=== PATIENT | female | born 1995 | race Caucasian/White ===

== ENCOUNTER 2017-05-29 13:12 | Emergency (ER) | payer OTHER ==
[2017-05-29 13:18] VITALS: TEMP 98.4
--- NOTE | 2017-05-29 13:25 | EDPHY ---
H & P Stated Complaint: N/V/D HPI/ROS: HPI CHIEF COMPLAINT: Nausea, vomiting, diarrhea HISTORY OF PRESENT ILLNESS: This patient very pleasant 21-year-old female she is otherwise healthy significant past medical history for depression and ADHD, presents emergency room with nausea vomiting diarrhea. Patient states she has been sick with diarrhea watery nonbloody for the past week. She has had some intermittent nausea no fever. She states she ate a burrito this morning and then medially started having vomiting. She thinks she may have food poisoning from the burrito. She denies any chest pain or shortness of breath. Patient denies fever. Does complain of generalized weakness plan denies urinary symptoms. Denies back pain. Denies significant abdominal pain. Past Medical History: Attention deficit hyperactivity disorder and depression Past Surgical History: No significant surgical history except septoplasty Social History: Denies drugs alcohol tobacco. Family History: Noncontributory ROS REVIEW OF SYSTEMS: A comprehensive 10 point review of systems is otherwise negative aside from elements mentioned in the history of present illness. Exam Constitutional appears well nontoxic triage nursing summary reviewed, vital signs reviewed, awake/alert. Eyes normal conjunctivae and sclera, EOMI, PERRLA. HENT normal inspection, atraumatic, moist mucus membranes, no epistaxis, neck supple/ no meningismus, no raccoon eyes. Respiratory clear to auscultation bilaterally, normal breath sounds, no respiratory distress, no wheezing. Cardiovascular rate normal, regular rhythm, no murmur, no edema, distal pulses normal. Gastrointestinal soft, non-tender, no rebound, no guarding, normal bowel sounds, no distension, no pulsatile mass. Genitourinary no CVA tenderness. Musculoskeletal no midline vertebral tenderness, full range of motion, no calf swelling, no tenderness of extremities, no meningismus, good pulses, neurovascularly intact. Skin pink, warm, & dry, no rash, skin atraumatic. Neurologic awake, alert and oriented x 3, AAOx3, moves all 4 extremities equally, motor intact, sensory intact, CN II-XII intact, normal cerebellar, normal vision, normal speech. Psychiatric normal mood/affect. Heme/Lymph/Immune no lymphadenopathy. Differential Diagnosis: Includes but is not limited to in a particular order dehydration, electrolyte disturbance, food-borne illness, flu, enteritis, appendicitis Medical Decision Making: Plan for this patient IV establishment IV fluid bolus 2 L normal saline, IV Zofran for nausea, check basic blood work, urinalysis, fluid mono. Re-evaluation: 1648: Re-evaluation at this time patient resting comfortably no acute distress feels much better after IV fluids. Her abdomen is soft nontender. She is not vomiting she would like to go home. Her blood work is unremarkable. Electrolytes are appropriate. No high white count fluids negative. Will allow go home prescription as Zofran. She understands return precautions , she understands return emergency room she develops worsening nausea vomiting abdominal pain fever questions or concerns. Source: Patient - Personal History LMP (Females 10-55): IUD In Place Current Tetanus Diphtheria and Acellular Pertussis (TDAP): Yes - Medical/Surgical History Other PMH: ADHD. depression - Social History Smoking Status: Never smoked Constitutional: Initial Vital Signs Temperature (C) 36.9 C 05/29/17 13:16 Heart Rate 88 05/29/17 13:16 Respiratory Rate 18 05/29/17 13:16 Blood Pressure 117/66 05/29/17 13:16 O2 Sat (%) 99 05/29/17 13:16 O2 Delivery Mode Room Air Allergies/Adverse Reactions: No Known Allergies Allergy (Unverified 05/29/17 15:23) Home Medications: Medication Instructions Recorded FLUoxetine [PROzac] 20 mg PO 05/29/17 Lisdexamfetamine Dimesylate 30 mg PO 05/29/17 [Vyvanse] Ondansetron HCl [Zofran] 4 mg PO Q4-6PRN PRN #10 tablet 05/29/17 Medical Decision Making - Data Points Laboratory Results: Laboratory Results 05/29/17 13:37 05/29/17 13:37 05/29/17 05/29/17 05/29/17 15:15 15:15 13:37 WBC RBC Hgb Hct MCV MCH MCHC RDW Plt Count MPV Neut % (Auto) Lymph % (Auto) [place] % (Auto) Eos % (Auto) Baso % (Auto) Nucleat RBC Rel Count Absolute Neuts (auto) Absolute Lymphs (auto) Absolute Monos (auto) Absolute Eos (auto) Absolute Basos (auto) Absolute Nucleated RBC Immature Gran % Immature Gran # Sodium Potassium Chloride Carbon Dioxide Anion Gap BUN Creatinine Estimated GFR Glucose Calcium Total Bilirubin Conjugated Bilirubin Unconjugated Bilirubin AST ALT Alkaline Phosphatase Total Protein Albumin Lipase Beta HCG, Qual NEGATIVE Urine Color COLORLESS Urine Appearance CLEAR Urine pH 7.0 (5.0-7.5) Ur Specific [place] 1.008 (1.002-1.030) Urine Protein NEGATIVE (NEGATIVE) Urine Ketones NEGATIVE (NEGATIVE) Urine Blood NEGATIVE (NEGATIVE) Urine Nitrate NEGATIVE (NEGATIVE) Urine Bilirubin NEGATIVE (NEGATIVE) Urine Urobilinogen NEGATIVE EU EU (0.2-1.0) Ur Leukocyte Esterase NEGATIVE (NEGATIVE) Urine Glucose NEGATIVE (NEGATIVE) Nasal Influenza A PCR NEGATIVE FOR FLU A (NEGATIVE) Nasal Influenza B PCR NEGATIVE FOR FLU B (NEGATIVE) Monoscreen NEGATIVE (NEGATIVE) 05/29/17 05/29/17 13:37 13:37 WBC 7.96 10^3/uL 10^3/uL (3.80-9.50) RBC 5.02 10^6/uL 10^6/uL (4.18-5.33) Hgb 15.3 g/dL g/dL (12.6-16.3) Hct 44.2 % % (38.0-47.0) MCV 88.0 fL fL (81.5-99.8) MCH 30.5 pg pg (27.9-34.1) MCHC 34.6 g/dL g/dL (32.4-36.7) RDW 13.2 % % (11.5-15.2) Plt Count 256 10^3/uL 10^3/uL (150-400) MPV 11.2 fL fL (8.7-11.7) Neut % (Auto) 65.7 % % (39.3-74.2) Lymph % (Auto) 27.1 % % (15.0-45.0) [place] % (Auto) 5.9 % % (4.5-13.0) Eos % (Auto) 0.1 % L % (0.6-7.6) Baso % (Auto) 0.6 % % (0.3-1.7) Nucleat RBC Rel Count 0.0 % % (0.0-0.2) Absolute Neuts (auto) 5.22 10^3/uL 10^3/uL (1.70-6.50) Absolute Lymphs (auto) 2.16 10^3/uL 10^3/uL (1.00-3.00) Absolute Monos (auto) 0.47 10^3/uL 10^3/uL (0.30-0.80) Absolute Eos (auto) 0.01 10^3/uL L 10^3/uL (0.03-0.40) Absolute Basos (auto) 0.05 10^3/uL 10^3/uL (0.02-0.10) Absolute Nucleated RBC 0.00 10^3/uL 10^3/uL (0-0.01) Immature Gran % 0.6 % % (0.0-1.1) Immature Gran # 0.05 10^3/uL 10^3/uL (0.00-0.10) Sodium 142 mEq/L mEq/L (134-144) Potassium 3.6 mEq/L mEq/L (3.5-5.2) Chloride 104 mEq/L mEq/L (97-110) Carbon Dioxide 23 mEq/l mEq/l (22-31) Anion Gap 15 mEq/L mEq/L (8-16) BUN 16 mg/dL mg/dL (7-23) Creatinine 0.8 mg/dL mg/dL (0.6-1.0) Estimated GFR > 60 Glucose 100 mg/dL mg/dL (70-100) Calcium 9.8 mg/dL mg/dL (8.5-10.4) Total Bilirubin 0.8 mg/dL mg/dL (0.1-1.4) Conjugated Bilirubin 0.3 mg/dL mg/dL (0.0-0.5) Unconjugated Bilirubin 0.5 mg/dL mg/dL (0.0-1.1) AST 26 IU/L IU/L (14-46) ALT 31 IU/L IU/L (9-52) Alkaline Phosphatase 89 IU/L IU/L (38-126) Total Protein 8.2 g/dL g/dL (6.3-8.2) Albumin 4.8 g/dL g/dL (3.5-5.0) Lipase 131 IU/L IU/L (23-300) Beta HCG, Qual Urine Color Urine Appearance Urine pH Ur Specific [place] Urine Protein Urine Ketones Urine Blood Urine Nitrate Urine Bilirubin Urine Urobilinogen Ur Leukocyte Esterase Urine Glucose Nasal Influenza A PCR Nasal Influenza B PCR Monoscreen Medications Given: Discontinued Medications Sodium Chloride (Ns) 1,000 mls @ 0 mls/hr IV EDNOW ONE; Wide Open PRN Reason: Protocol Stop: 05/29/17 13:31 Last Admin: 05/29/17 13:34 Dose: 1,000 mls Sodium Chloride (Ns) 1,000 mls @ 0 mls/hr IV ONCE ONE PRN Reason: Wide Open Stop: 05/29/17 13:32 Last Admin: 05/29/17 13:35 Dose: 1,000 mls Ondansetron HCl (Zofran) 4 mg IVP EDNOW ONE Stop: 05/29/17 13:31 Last Admin: 05/29/17 13:35 Dose: 4 mg Departure - Departure Disposition: Home, Routine, Self-Care Clinical Impression: Nausea and vomiting Qualifiers: Vomiting type: unspecified Vomiting Intractability: non-intractable Qualified Code(s): R11.2 - Nausea with vomiting, unspecified Condition: Good Instructions: Acute Nausea and Vomiting (ED) Additional Instructions: 1. Return emergency room if you have worsening symptoms includes abdominal pain , vomiting or fever. 2. [place] diet next 48 hr. 3. Zofran for nausea. Referrals: NONE *PRIMARY CARE P,. [Primary Care Provider] - As per Instructions Prescriptions: Ondansetron HCl [Zofran] 4 mg PO Q4-6PRN PRN #10 tablet PRN Reason: Nausea/Vomiting, Use 1st
[2017-05-29] MEDS ORDERED: ONDANSETRON 4 MG/2 ML VIAL ONE (13:28)
[2017-05-29] MEDS ORDERED: ONDANSETRON 4 MG/2 ML VIAL IVP ONE (13:30)
[2017-05-29] MEDS ORDERED: NS 1,000 ML IV ONE ×2 (13:30→13:31)
[2017-05-29 13:48] LABS: % IMMATURE GRANULYOCYTES 0.6 % (0.0-1.1); ABSOLUTE IMMATURE GRANULOCYTES 0.05 10^3/uL (0.00-0.10); ADD DIFF? NO; ADD MORPH? NO; ADD SCAN? YES; FRAGMENT RBC FLAG 0 (0-99); HEMATOCRIT 44.2 % (38.0-47.0); HEMOGLOBIN 15.3 g/dL (12.6-16.3); LEFT SHIFT FLG 0 (0-99); LIPEMIA HEMOLYSIS FLAG 90 (0-99); MEAN CELL HEMOGLOBIN 30.5 pg (27.9-34.1); MEAN CELL HEMOGLOBIN CONCENTR. 34.6 g/dL (32.4-36.7); MEAN PLATELET VOLUME 11.2 fL (8.7-11.7); PLATELET CLUMPS FLAG 0 (0-99); PLATELET COUNT 256 10^3/uL (150-400); RED BLOOD CELL COUNT 5.02 10^6/uL (4.18-5.33); RED CELL DISTRIBUTION WIDTH 13.2 % (11.5-15.2)
[2017-05-29 13:49] LABS: ATYPICAL LYMPHOCYTE FLAG 180 (0-99)
[2017-05-29 13:56] LABS: BHCG-QUALITATIVE NEGATIVE
[2017-05-29 13:57] LABS: ALANINE AMINOTRANSFERASE 31 IU/L (9-52); ALBUMIN 4.8 g/dL (3.5-5.0); ALKALINE PHOSPHATASE 89 IU/L (38-126); ANION GAP 15 mEq/L (8-16); ASPARTATE AMINOTRANSFERASE 26 IU/L (14-46); BILIRUBIN,TOTAL 0.8 mg/dL (0.1-1.4); BILIRUBIN-CONJUGATED 0.3 mg/dL (0.0-0.5); BILIRUBIN-UNCONJUGATED 0.5 mg/dL (0.0-1.1); CALCIUM 9.8 mg/dL (8.5-10.4); CARBON DIOXIDE 23 mEq/l (22-31); CHLORIDE 104 mEq/L (97-110); CREATININE 0.8 mg/dL (0.6-1.0); GLOMERULAR FILTRATION RATE > 60; GLUCOSE 100 mg/dL (70-100); POTASSIUM 3.6 mEq/L (3.5-5.2); SODIUM 142 mEq/L (134-144); TOTAL PROTEIN 8.2 g/dL (6.3-8.2)
[2017-05-29 14:05] LABS: MONO TEST NEGATIVE (NEGATIVE)
[2017-05-29 14:26] LABS: SCAN NEGATIVE
[2017-05-29 15:35] LABS: COLOR COLORLESS; LEUKOCYTE ESTERASE,URINE NEGATIVE (NEGATIVE); NITRITE,URINE NEGATIVE (NEGATIVE)
[2017-05-29] MEDS ORDERED: ONDANSETRON 4MG PREPACK#2 BTL TAKEHOME ONE ×2 (16:53→16:54)
[2017-05-29 17:01] VITALS: BP 120/60; PULSE 60; RESP 14; O2SAT 97
== END 2017-05-29 17:01 | disposition home or self-care (01) ==
DX: R11.2 Nausea with vomiting, unspecified (principal); E86.9 Volume depletion, unspecified
CPT/HCPCS: 96374; J2405

== ENCOUNTER 2018-02-19 03:57 | Emergency (ER) | payer OTHER ==
[2018-02-19] MEDS ORDERED: DIAZEPAM 5 MG TAB PO ONE (04:06)
[2018-02-19] MEDS ORDERED: fentaNYL 100 MCG/2 ML INJ IVP ONE (05:20)
--- NOTE | 2018-02-19 05:47 | EDPHY ---
H & P Stated Complaint: JAW LOCKED OPEN X 1 HR Time Seen by Provider: 02/19/18 04:06 HPI/ROS: HPI The patient presents with sensation of jaw locking for about 1 hr. This began after eating. Her mouth opened and she was unable to close it. She is having bilateral jaw pain. The pain has been constant, is achy, is getting progressively worse. She has no prior history of similar. She does have a history of TMJ.. REVIEW OF SYSTEMS 10 systems were reviewed and negative with the exception of the elements mentioned in the history of present illness. PMHx: TMJ Soc Hx: Here with her boyfriend PHYSICAL General Appearance: Alert, uncomfortable appearing Eyes: Pupils equal and round no pallor or injection ENT, Mouth: Mucous membranes moist, mouth open, she is unable to close it, she has tenderness bilaterally at the TMJ Respiratory: Breathing comfortably Neurological: A&O, moves all extremities Skin: Warm and dry, no rashes Psychiatric: Patient is oriented X 3, there is no agitation Source: Patient Exam Limitations: No limitations - Personal History Current Tetanus/Diphtheria Vaccine: Yes Current Tetanus Diphtheria and Acellular Pertussis (TDAP): Yes - Medical/Surgical History Hx Asthma: No Hx Chronic Respiratory Disease: No Hx Diabetes: No Hx Cardiac Disease: No Hx Renal Disease: No Hx Cirrhosis: No Hx Alcoholism: No Hx HIV/AIDS: No Hx Splenectomy or Spleen Trauma: No Other PMH: ADHD. depression - Social History Smoking Status: Never smoked Constitutional: Initial Vital Signs Temperature (C) 36.8 C 02/19/18 03:59 Heart Rate 91 02/19/18 03:59 Respiratory Rate 16 02/19/18 03:59 Blood Pressure 128/90 H 02/19/18 03:59 O2 Sat (%) 98 02/19/18 03:59 O2 Delivery Mode Nasal Cannula O2 (L/minute) 3 Allergies/Adverse Reactions: No Known Allergies Allergy (Unverified 02/19/18 04:01) Home Medications: Medication Instructions Recorded FLUoxetine [PROzac] 20 mg PO 05/29/17 Lisdexamfetamine Dimesylate 30 mg PO 05/29/17 [Vyvanse] Ondansetron HCl [Zofran] 4 mg PO Q4-6PRN PRN #10 tablet 05/29/17 Medical Decision Making Differential Diagnosis: 22-year-old female with presumed bilateral TMJ dislocation which occurred while chewing something. She has a history of TMJ, patient was given Ativan 1 mg p.o. Without any improvement in her symptoms. I attempted a reduction and it was unsuccessful. Thus, IV line was placed, patient was given fentanyl 100 mcg and using the extraoral technique her dislocation was reduced successfully. She was advised to maintain a soft diet, avoid yawning, I have given her follow-up information with [facility]. She is happy with this plan. I have considered muscle spasm, mandible fracture and my differential. - Data Points Medications Given: Discontinued Medications Diazepam (Valium) 5 mg PO EDNOW ONE Stop: 02/19/18 04:07 Last Admin: 02/19/18 04:12 Dose: 5 mg Fentanyl (Sublimaze) 100 mcg IVP EDNOW ONE Stop: 02/19/18 05:21 Last Admin: 02/19/18 05:39 Dose: 100 mcg Departure - Departure Disposition: Home, Routine, Self-Care Clinical Impression: Dislocation of mandible Qualifiers: Encounter type: initial encounter Qualified Code(s): S03.00XA - Dislocation of jaw, unspecified side, initial encounter Condition: Good Instructions: Mandibular Dislocation (ED) Additional Instructions: Please return to the emergency department if your worse in any way. I recommend you use ice packs on her jaw and avoid yawning or eating any crunchy foods. Referrals: Cindy Kidd MD [Medical Doctor] - As per Instructions
[2018-02-19 06:30] VITALS: BP 109/71
== END 2018-02-19 06:31 | disposition home or self-care (01) ==
PROC: 0RSDXZZ Reposition Left Temporomandibular Joint, External Approach (ICD-10-PCS; principal; 2018-02-19)
PROC: 0RSCXZZ Reposition Right Temporomandibular Joint, External Approach (ICD-10-PCS; principal; 2018-02-19)
DX: S03.00XA Dislocation of jaw, unspecified side, initial encounter (principal); X58.XXXA Exposure to other specified factors, initial encounter
CPT/HCPCS: 96374; J3010